=== PATIENT | male | born 1965 | race Caucasian/White ===

== ENCOUNTER 2017-04-26 16:53 | Emergency (ER) | payer BC ==
--- NOTE | 2017-04-26 17:29 | ED NURSING NOTES ---
Clinical Report - Nurses [place] [address] [place] [address] 04/26/2017 16:54 Patient: BOB DRUMMOND TRIAGE Triage time 17:13 Apr 26 2017. Acuity: LEVEL 4. Chief Complaint: INJURY TO HAND. INJURY TO THE RIGHT HAND. Alert. No acute distress. --17:17 Elijah Adhikari R.N. 17:12 04/26/17. BP: 167/95. HR: 78. RR: 15. O2 saturation: 100%. Pain level now: 11/16. --17:17 Elijah Adhikari R.N. Weight: 96.1 kg stated. Height/Length: 75 inches Per Patient. BMI: 26.5. --17:15 Elijah Adhikari R.N. Medications Tylenol Oral. --17:12 Elijah Adhikari R.N. Medication/allergy information source: the patient. --17:17 Elijah Adhikari R.N. Allergies Latex. --17:12 Elijah Adhikari R.N. History Arrived by private vehicle. Historian: patient. 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 PAST MEDICAL HX: Tetanus status: unknown. SOCIAL HX: Former smoker. Alcohol use; consumes beer daily. History of drug use: marijuana. No infectious disease exposure. ABUSE ASSESSMENT: No report of abuse. SELF HARM ASSESSMENT: A self harm assessment was performed. The patient answered "no" to the question "Do you have thoughts of harming or killing yourself?". FALL RISK ASSESSMENT: Fall risk assessment completed. No fall risk identified. NUTRITIONAL RISK ASSESSMENT: The nutritional risk assessment revealed no deficiencies. FUNCTIONAL ASSESSMENT: Functional assessment: no impairments noted. LEARNING NEEDS ASSESSMENT: The learning needs assessment revealed no barriers. SKIN INTEGRITY ASSESSMENT: Skin integrity risk assessment completed. No skin integrity risk identified. --17:17 Elijah Adhikari R.N. PROBLEMS: Hypertension. Hypertension. --17:13 Elijah Adhikari R.N. ADDITIONAL SURGERIES: Salivary Gland Surgery. --17:13 Elijah Adhikari R.N. Interventions ID and allergy band on patient. --17:17 Elijah Adhikari R.N. PHYSICAL ASSESSMENT Ambulatory to room. GENERAL / NEURO / PSYCH: Oriented X 4. Alert. Appears in no acute distress. EXTREMITIES: Capillary refill is less than 2 seconds in the extremities. Extremity pulses are within normal limits. Neuro-vascular status intact to the extremity. Thenar eminence, right hand: superficial laceration. SKIN: Skin is warm and dry. Laceration to right hand. --17:19 Elijah Adhikari R.N. NURSING PROGRESS NOTES Patient identifiers checked. Call light placed in reach. Bed placed in lowest position. Brakes of bed on. Patient ready for evaluation- chart flagged. Patient waiting for evaluation. --17:19 Elijah Adhikari R.N. 17:29 04/26/2017 TDAP IM 0.5 mL given. (Lot#: [id number], expiration date: 03/17/2019, Hotel Maintenance Engineer: sanofi pasteur). Given in the right deltoid. Allergies verified and confirmed 5 rights. Vaccine information statement provided to the patient. --17:34 Elijah Adhikari R.N. Applied clean dressing consisting of Band-Aid and steri-strips. Secured with tube gauze. --17:35 Elijah Adhikari R.N. DISPOSITION / DISCHARGE No learning barriers present. Discharge instructions provided and reviewed with the patient. Reviewed warnings (monitor for s/sx of infection). Patient verbalized understanding. Written instructions provided in [place]. The patient was discharged by the nurse practitioner. He was discharged home and accompanied by spouse. He left the Emergency Department ambulatory and via private vehicle. Spouse driving. --17:58 Elijah Adhikari R.N. 17:57 04/26/17. BP: deferred. HR: deferred. RR: deferred. O2 saturation: deferred. Temp: deferred. Pain level now deferred. --17:58 Elijah Adhikari R.N. Locked/Released at 04/26/2017 20:54 by Elijah Adhikari R.N.
--- NOTE | 2017-04-26 17:29 | ED ORDER SUMMARY ---
..... Patient: BOB DRUMMOND OrderSheet [facility] VisitID: [id number] [address] [place] [address] 52y, M Registration Date/Time: 04/26/2017 ORDER SHEET Weight: 96.1 kg (stated) Allergies: Latex GENERAL ORDERS: Dress Wounds (17:28 04/26/2017 JENNIFERivens A.R.N.P.) (17:34 KPage-Adrianen R.N.) MEDICATION ORDERS: Tdap IM 0.5 mL (NOW, per protocol) (17:22 04/26/2017 KPaScottie R.N. per protocol) (Ack 17:23 KPasherrie-Agustin R.N.) (17:34 KPage-Kuchan R.N.) IV FLUIDS: ORDER SHEET NOTES: [Electronically signed by Elijah Adhikari R.N. (20:54 04/26/2017)] [Electronically signed by Elisabeth StoverRSampsonN.PSampson (22:55 04/26/2017)] [Electronically locked/signed by Elijah Adhikari R.N. (20:54 04/26/2017)]
--- NOTE | 2017-04-26 17:29 | ED NURSING NOTES ---
Clinical Report - Nurses [place] [address] [place] [address] 04/26/2017 16:54 Patient: BOB DRUMMOND TRIAGE Triage time 17:13 Apr 26 2017. Acuity: LEVEL 4. Chief Complaint: INJURY TO HAND. INJURY TO THE RIGHT HAND. Alert. No acute distress. --17:17 Elijah Adhikari R.N. 17:12 04/26/17. BP: 167/95. HR: 78. RR: 15. O2 saturation: 100%. Pain level now: 11/16. --17:17 Elijah Adhikari R.N. Weight: 96.1 kg stated. Height/Length: 75 inches Per Patient. BMI: 26.5. --17:15 Elijah Adhikari R.N. Medications Tylenol Oral. --17:12 Elijah Adhikari R.N. Medication/allergy information source: the patient. --17:17 Elijah Adhikari R.N. Allergies Latex. --17:12 Elijah Adhikari R.N. History Arrived by private vehicle. Historian: patient. 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 Treatment EXTERN: None. PAST MEDICAL HX: Tetanus status: unknown. SOCIAL HX: Former smoker. Alcohol use; consumes beer daily. History of drug use: marijuana. No infectious disease exposure. ABUSE ASSESSMENT: No report of abuse. SELF HARM ASSESSMENT: A self harm assessment was performed. The patient answered "no" to the question "Do you have thoughts of harming or killing yourself?". FALL RISK ASSESSMENT: Fall risk assessment completed. No fall risk identified. NUTRITIONAL RISK ASSESSMENT: The nutritional risk assessment revealed no deficiencies. FUNCTIONAL ASSESSMENT: Functional assessment: no impairments noted. LEARNING NEEDS ASSESSMENT: The learning needs assessment revealed no barriers. SKIN INTEGRITY ASSESSMENT: Skin integrity risk assessment completed. No skin integrity risk identified. --17:17 Elijah Adhikari R.N. PROBLEMS: Hypertension. Hypertension. --17:13 Elijah Adhikari R.N. ADDITIONAL SURGERIES: Salivary Gland Surgery. --17:13 Elijah Adhikari R.N. Interventions ID and allergy band on patient. --17:17 Elijah Adhikari R.N. PHYSICAL ASSESSMENT Ambulatory to room. GENERAL / NEURO / PSYCH: Oriented X 4. Alert. Appears in no acute distress. EXTREMITIES: Capillary refill is less than 2 seconds in the extremities. Extremity pulses are within normal limits. Neuro-vascular status intact to the extremity. Thenar eminence, right hand: superficial laceration. SKIN: Skin is warm and dry. Laceration to right hand. --17:19 Elijah Adhikari R.N. NURSING PROGRESS NOTES Patient identifiers checked. Call light placed in reach. Bed placed in lowest position. Brakes of bed on. Patient ready for evaluation- chart flagged. Patient waiting for evaluation. --17:19 Elijah Adhikari R.N. 17:29 04/26/2017 TDAP IM 0.5 mL given. (Lot#: [id number], expiration date: 03/17/2019, Teacher Learning Disabled: sanofi pasteur). Given in the right deltoid. Allergies verified and confirmed 5 rights. Vaccine information statement provided to the patient. --17:34 Elijah Adhikari R.N. Applied clean dressing consisting of Band-Aid and steri-strips. Secured with tube gauze. --17:35 Elijah Adhikari R.N. DISPOSITION / DISCHARGE No learning barriers present. Discharge instructions provided and reviewed with the patient. Reviewed warnings (monitor for s/sx of infection). Patient verbalized understanding. Written instructions provided in [place]. The patient was discharged by the nurse practitioner. He was discharged home and accompanied by spouse. He left the Emergency Department ambulatory and via private vehicle. Spouse driving. --17:58 Elijah Adhikari R.N. 17:57 04/26/17. BP: deferred. HR: deferred. RR: deferred. O2 saturation: deferred. Temp: deferred. Pain level now deferred. --17:58 Elijah Adhikari R.N. Locked/Released at 04/26/2017 20:54 by Elijah Adhikari R.N.
--- NOTE | 2017-04-26 17:29 | ED CLINICAL REPORT ---
Clinical Report - Physicians/Mid Levels [facility] [address] [place] [address] 04/26/2017 16:54 Patient: BOB DRUMMOND Time Seen: 17:15; initial patient contact, initial documentation, patient care assumed. Arrived- By private vehicle. Historian- patient. HISTORY OF PRESENT ILLNESS Chief Complaint: Injury to the right hand. The injury happened just prior to arrival. The patient sustained a laceration from a knife (razor knife). Occurred at home. Patient is experiencing mild pain. Patient denies injury to the head or neck. No other injury. REVIEW OF SYSTEMS The patient sustained a laceration. No swelling, tingling, numbness, weakness or foreign body. All systems otherwise negative, except as recorded above. PAST HISTORY See nurses notes. PROBLEMS: Hypertension. Hypertension. --17:13 Elijah Adhikari RJoe. ADDITIONAL SURGERIES: Salivary Gland Surgery. --17:13 Elijah Adhikari RJoe. SOCIAL HISTORY Former smoker. Heavy alcohol use; consumes beer daily. History of drug use: marijuana. No recent travel. Is a local resident. FAMILY HISTORY No significant family medical history. ADDITIONAL NOTES The nursing notes have been reviewed with agreement regarding the chief complaint, HPI, ROS, PMH and patient medications and allergies. PHYSICAL EXAM Vital Signs: 04/26/2017 17:12 BP: 167/95. HR: 78. RR: 15. O2 saturation: 100%. Pain level now: 10. Have been reviewed as abnormal and appear to be correct. Hypertensive. Heart rate normal. Respiratory rate normal. Oxygen saturation normal. Appearance: Alert. Oriented X3. No acute distress. Head: Head atraumatic. Eyes: Pupils equal, round and reactive to light. Eyes normal inspection. Respiratory: No respiratory distress. Skin: Skin warm and dry. Skin intact. Extremities: Hand injury present. Right palm: mild tenderness and superficial 2.0 cm laceration of the proximal aspect of the palm. Neurovascular intact distally. (all of lac superficial except about 1/2 section, no active bleeding). No erythema, swelling, abrasion, ecchymosis or puncture wound. No foreign body or deformity. No limitation in movement. No wrist injury. Hand and wrist exam otherwise negative. Extremities otherwise negative. Neuro, Vascular and Tendons: Vascular status intact. Sensation intact. Motor intact. Tendon function intact. Neuro: Oriented X 3. No motor deficit. No sensory deficit. Note: isolated injury to hand. PROGRESS AND PROCEDURES Course of Care: tx options discussed with what to do with section of lac that was a little deeper, agreed to use steri strips. Patient counseled in person regarding the patient's stable condition and diagnosis. Differential Diagnosis: Other possible considerations: hand lac, fb, skin avulsion, tendon injury. Above considerations are based on history and physical exam. Differential diagnosis was discussed with patient. Disposition: Discharged home in good and improved condition (17:29). Condition: good and stable. CLINICAL IMPRESSION Single superficial laceration to the right hand.Treatment of laceration not delayed. No infection or foreign body present. INSTRUCTIONS Protect wound and keep wound area clean. Soak in warm soapy water twice daily. Apply neosporin twice daily. Warnings: TETANUS: You were given a tetanus shot during your visit. Make a note for future reference. GENERAL WARNINGS: Return or contact your physician immediately if your condition worsens or changes unexpectedly, if not improving as expected, or if other problems arise. Specifically return if problem worsens. Follow-up: Follow up with your doctor in about three days as needed and for wound check. Call for an appointment. Summary of care provided to patient. Understanding of the discharge instructions verbalized by patient. (Electronically signed by Elisabeth Stover A.R.N.P. 04/26/2017 22:55)
--- NOTE | 2017-04-26 17:29 | ED ORDER SUMMARY ---
..... Patient: BOB DRUMMOND OrderSheet [facility] VisitID: [id number] [address] [place] [address] 52y, M Registration Date/Time: 04/26/2017 ORDER SHEET Weight: 96.1 kg (stated) Allergies: Latex GENERAL ORDERS: Dress Wounds (17:28 04/26/2017 JENNIFERivens A.R.N.P.) (17:34 KPage-Adrianen R.N.) MEDICATION ORDERS: Tdap IM 0.5 mL (NOW, per protocol) (17:22 04/26/2017 KPaScottie R.N. per protocol) (Ack 17:23 KPasherrie-Agustin R.N.) (17:34 KPage-Kuchan R.N.) IV FLUIDS: ORDER SHEET NOTES: [Electronically signed by Elijah Adhikari R.N. (20:54 04/26/2017)] [Electronically signed by Elisabeth StoverRSampsonN.PSampson (22:55 04/26/2017)] [Electronically locked/signed by Elijah Adhikari R.N. (20:54 04/26/2017)]
--- NOTE | 2017-04-26 22:55 | ED MAR SUMMARY ---
..... Medication Administration Record [facility] [address] [place] [address] Patient: BOB DRUMMOND Visit ID: [id number] 52y, M Weight: 96.1 kg Height/Length: 75 in BMI: 26.5 ALLERGIES: Latex Given 17:29 04/26/2017 Elijah Adhikari R.N. Medication Administered: TDAP [IM], Dose: 0.5 mL IM. Medication Ordered: Tdap IM 0.5 mL (NOW, per protocol).
--- NOTE | 2017-04-26 22:55 | ED DISCHARGE INSTRUCTIONS ---
Patient: BOB DRUMMOND General Instructions [facility] VisitID: [id number] [place] [address] 52y, M Registration Date/Time: 04/26/2017 Single superficial laceration to the right hand.Treatment of laceration not delayed. No infection or foreign body present. INSTRUCTIONS Protect wound and keep wound area clean. Soak in warm soapy water twice daily. Apply neosporin twice daily. Warnings: TETANUS: You were given a tetanus shot during your visit. Make a note for future reference. GENERAL WARNINGS: Return or contact your physician immediately if your condition worsens or changes unexpectedly, if not improving as expected, or if other problems arise. Specifically return if problem worsens. Follow-up: Follow up with your doctor in about three days as needed and for wound check. Call for an appointment. Summary of care provided to patient. Understanding of the discharge instructions verbalized by patient. ADDITIONAL INFORMATION Laceration (All Closures) Alaceration is a cut through the skin. This will usually require stitches (sutures) or alejandro if it is deep. Minor cuts may be treated with a surgical tape closure orskin glue. Home care The following guidelines will help you care for your laceration at home: Extremity, face, or trunk wounds Keep the wound clean and dry. If a bandage was applied and it becomes wet or dirty, replace it. Otherwise, leave it in place for the first 24 hours. If stitches or alejandro were used, clean the wound daily. After removing the bandage, wash the area with soap and water. Use a wet cotton swab to loosen and remove any blood or crust that forms. The doctor may prescribe an antibiotic cream or ointment to prevent infection. Do not stop taking this medication until you have finished the prescribed course or the doctor tells you to stop. The doctor may also prescribe medications for pain. Follow the doctors instructions for taking these medications. You may remove the bandage to shower as usual after the first 24 hours, but do not soak the area in water (no swimming) until the stitches or alejandro are removed. If surgical tape was used, keep the area clean and dry. If it becomes wet, blot it dry with a towel. If skin glue was used, do not scratch, rub, or pick at the adhesive film. Do not place tape directly over the film. Do not apply liquid, ointment, or creams to the wound while the film is in place. Do not clean the wound with peroxide and do not apply ointments. Avoid activities that cause heavy sweating until the film has fallen off. Protect the wound from prolonged exposure to sunlight or tanning lamps. You may shower as usual but do not soak the wound in water (no baths or swimming). The film will fall off by itself in 510 days. Scalp wounds During the first two days, you may carefully rinse your hair in the shower to remove blood, glass or dirt particles. After two days, you may shower and shampoo your hair normally. Do not soak your scalp in the tub or go swimming until the stitches or alejandro have been removed. Talk with your doctor before applying any antibiotic ointment to the wound. Mouth wounds Eat soft foods to reduce pain. If the cut is inside of your mouth, clean by rinsing after each meal and at bedtime with a mixture of equal parts water and hydrogen peroxide (do not swallow!). Or, you can use a cotton swab to directly apply hydrogen peroxide onto the cut. Mouth wounds can be painful when eating. You may use an [id number] local numbing solution for pain relief. If this is not available, you may use any numbing solution for teething babies. You may apply this directly to the sores with a cotton-tip swab or with your finger. Follow-up care Follow up with your health care provider. Most skin wounds heal within ten days. Mouth and facial wounds heal within five days. However, even with proper treatment, a wound infection may sometimes occur. Therefore, you should check the wound daily for signs of infection listed below. Stitches should be removed from the face within five days; stitches and alejandro should be removed from other parts of the body within 714 days. If dissolving stitches were used in the mouth, these will fall out or dissolve without the need for removal. If tape closures were used, remove them yourself if they have not fallen off after 7 days. Ifskin glue was used, the film will fall off by itself in 510 days. When to seek medical care Get prompt medical attention if any of these occur: Bleeding not controlled by direct pressure Signs of infection, including increasing pain in the wound, increasing wound redness or swelling, or pus coming from the wound Fever of 100.4F (38C) or higher, or as directed by your health care provider Stitches or alejandro come apart or fall out or surgical tape falls off before 7 days Wound edges re-open Laceration, Extremity (Sutures, Alejandro, Or Tape) A laceration is a cut through the skin. This will usually require stitches (sutures) or alejandro if it is deep. Minor cuts may be treated with surgical tape closures. Home care The following guidelines will help you care for your laceration at home: Keep the wound clean and dry. If a bandage was applied and it becomes wet or dirty, replace it. Otherwise, leave it in place for the first 24 hours, then change it once a day or as directed. If stitches or alejandro were used, clean the wound daily: After removing the bandage, wash the area with soap and water. Use a wet cotton swab to loosen and remove any blood or crust that forms. After cleaning, keep the wound clean and dry. Talk with your doctor before applying any antibiotic ointment to the wound. Reapply the bandage. You may remove the bandage to shower as usual after the first 24 hours, but do not soak the area in water (no swimming) until the stitches or alejandro are removed. If surgical tape closures were used, keep the area clean and dry. If it becomes wet, blot it dry with a towel. The doctor may prescribe an antibiotic cream or ointment to prevent infection. Do not stop taking this medication until you have finished the prescribed course or the doctor tells you to stop. The doctor may also prescribe medications for pain. Follow the doctors instructions for taking these medications. If you have chronic liver or kidney disease or ever had a stomach ulcer or GI bleeding, talk with your doctor before using these medicines. Follow-up care Follow up with your health care provider. Most skin wounds heal within ten days. However, an infection may sometimes occur despite proper treatment. Therefore, check the wound daily for the signs of infection listed below. Stitches and alejandro should be removed within 714 days. If surgical tape closures were used, you may remove them after 10 days, if they have not fallen off by then. Notify your doctor if you notice persistent numbness or weakness in the injured extremity. (Note:A radiologist will review any X-rays that were taken. We will notify you of any new findings that may affect your care.) When to seek medical care Get prompt medical attention if any of these occur: Increasing pain in the wound Redness, swelling, or pus coming from the wound Fever of 100.4F (38C) or higher, or as directed by your health care provider If stitches or alejandro come apart or fall out before your next appointment If the surgical tape closures fall off within seven days, or the wound edges re-open Bleeding not controlled by direct pressure Diphtheria Toxoid Adsorbed, Pertussis Vaccine, Acellular (Adsorbed), Tetanus Toxoid, Adsorbed Suspension for injection What is this medicine? DIPHTHERIA and TETANUS TOXOIDS; PERTUSSIS VACCINE (dif THEER ee uh and TET n us TOK soids; per TUS iss nikk SEEN) is used to prevent diphtheria, tetanus, and pertussis infections. How should I use this medicine? This vaccine is for injection into a muscle. It is given by a health grounds caretaker. A copy of Vaccine Information Statements will be given before each vaccination. Read this sheet carefully each time. The sheet may change frequently. Talk to your electrical design technologist regarding the use of this vaccine in children. While the DTP vaccine may be given to children ages 6 weeks to 7 years and the Tdap vaccine may be given to children at least 10 years old, precautions do apply. What side effects may I notice from receiving this medicine? Side effects that you should report to your doctor or health grounds caretaker as soon as possible: allergic reactions like skin rash, itching or hives, swelling of the face, lips, or tongue breathing problems fever of 103 degrees F or more flu-like symptoms inconsolable crying infection pain, tingling, numbness in the hands or feet seizures swelling of arm or leg that was injected unusually weak or tired Side effects that usually do not require immediate medical attention (report these side effects to your doctor or health grounds caretaker if they continue or are bothersome): fussy, irritable loss of appetite fever of 102 degrees F or less pain, tenderness, redness, swelling, or a 'knot' at site where injected vomiting What may interact with this medicine? immune globulin medicines that suppress your immune function like adalimumab, anakinra, infliximab medicines to treat cancer medicines that treat or prevent blood clots like warfarin, enoxaparin, and dalteparin steroid medicines like prednisone or cortisone What if I miss a dose? It is important not to miss your dose. Call your doctor or health grounds caretaker if you are unable to keep an appointment. Where should I keep my medicine? This drug is given in a hospital or clinic and will not be stored at home. What should I tell my health care provider before I take this medicine? They need to know if you have any of these conditions: blood disorders like hemophilia fever or infection immune system problems neurologic disease seizures an unusual or allergic reaction to vaccines, thimerosal, latex, other medicines, foods, dyes, or preservatives or trying to get breast-feeding What should I watch for while using this medicine? See your health care provider for all shots of this vaccine as directed. To have protection from infection, you must have 3 shots of this vaccine plus boosters as needed. Tell your doctor right away if you have any serious or unusual side effects after getting this vaccine. You have been given the following additional information: Laceration, All Laceration, Extrem (Suture, Staple, Or Tape) Diphtheria Toxoid Adsorbed, Pertussis Vaccine, Acellular (Adsorbed), Tetanus Toxoid, Adsorbed Suspension for injection (Electronically signed by Elisabeth Stover A.R.N.P. 04/26/2017 22:55)
--- NOTE | 2017-04-26 22:55 | ED MED RECONCILIATION SUMMARY ---
Patient: BOB DRUMMOND Medication Reconciliation Report [facility] VisitID: [id number] [address] [place] [address] 52y, M Registration Date/Time: 04/26/2017 Weight: 96.1 kg Height/Length: 75 in. BMI: 26.5 ALLERGIES: Latex The patient's Home Medications are listed below: THE FOLLOWING MEDICATIONS NEED TO BE RECONCILED: Tylenol Oral The source(s) of the original Home Medication information: patient The following Medications were given to the patient in the Emergency Department: TDAP [IM] IM 0.5 mL, administered: 04/26/2017 5:29:00 PM The following Medications were prescribed to the patient: None.
--- NOTE | 2017-04-26 22:55 | ED MED RECONCILIATION SUMMARY ---
Patient: BOB DRUMMOND Medication Reconciliation Report [facility] VisitID: [id number] [address] [place] [address] 52y, M Registration Date/Time: 04/26/2017 Weight: 96.1 kg Height/Length: 75 in. BMI: 26.5 ALLERGIES: Latex The patient's Home Medications are listed below: THE FOLLOWING MEDICATIONS NEED TO BE RECONCILED: Tylenol Oral The source(s) of the original Home Medication information: patient The following Medications were given to the patient in the Emergency Department: TDAP [IM] IM 0.5 mL, administered: 04/26/2017 5:29:00 PM The following Medications were prescribed to the patient: None.
--- NOTE | 2017-04-26 22:55 | ED MAR SUMMARY ---
..... Medication Administration Record [facility] [address] [place] [address] Patient: BOB DRUMMOND Visit ID: [id number] 52y, M Weight: 96.1 kg Height/Length: 75 in BMI: 26.5 ALLERGIES: Latex Given 17:29 04/26/2017 Elijah Adhikari R.N. Medication Administered: TDAP [IM], Dose: 0.5 mL IM. Medication Ordered: Tdap IM 0.5 mL (NOW, per protocol).
== END 2017-04-26 17:54 | disposition home or self-care (01) ==
LOC: ED SRH 16:53
DX: S61.411A Laceration without foreign body of right hand, initial encounter (principal); W26.0XXA Contact with knife, initial encounter; Y93.9 Activity, unspecified; Y92.019 Unspecified place in single-family (private) house as the place of occurrence of the external cause; Y99.8 Other external cause status; Z23 Encounter for immunization; I10 Essential (primary) hypertension; Z87.891 Personal history of nicotine dependence; Z91.040 Latex allergy status